=== PATIENT | female | born 1965 | race Caucasian/White ===

== ENCOUNTER 2017-05-31 08:19 | Day surgery (SDC) | payer MEDICAID, OTHER ==
[~2017-05-31] VITALS: Ht 165.1 cm; Wt 119.6 kg
[2017-05-31] VITALS (11 sets, daily range): BP systolic 112–140; BP diastolic 77–94; PULSE 85–102; RESP 15–41; Ht 165.1 cm; Wt 119.6 kg
[~2017-05-31 08:19] MED LIST: CEFAZOLIN 2 GM/50 ML (PMX) 50 ML IVPB SCH; SOD CHLORIDE 0.9% 1,000 ML IV SCH
[2017-05-31] MEDS ORDERED: BUPIVACAINE 0.25% (MPF) 30 ML INJ ONE (08:21)
[2017-05-31] MEDS ORDERED: BUPR-75 PO (09:12)
[2017-05-31] MEDS ORDERED: LORA1TAB PO (09:13)
[2017-05-31] MEDS ORDERED: TOPI-44 PO (09:13)
[2017-05-31] MEDS ORDERED: ZOLP5TAB PO (09:13)
[2017-05-31] MEDS ORDERED: QUET100T PO (09:14)
[2017-05-31] MEDS ORDERED: LIDOCAINE 2% (SDV) 5 ML INJ ONE (09:30)
[2017-05-31] MEDS ORDERED: PROPOFOL 40 ML ONE (09:30)
[2017-05-31] MEDS ORDERED: CEFAZOLIN 1 GM INJ ONE (09:30)
[2017-05-31] MEDS ORDERED: ONDANSETRON 4 MG INJ ONE (09:31)
[2017-05-31] MEDS ORDERED: DEXAMETHASONE 4 MG/ML 1 ML INJ ONE (09:31)
[2017-05-31] MEDS ORDERED: FENTAnyl 50 MCG/ML VIAL ONE (09:31)
[2017-05-31] MEDS ORDERED: GLYCOPYRROLATE 0.4 MG INJ ONE (09:33)
[2017-05-31] MEDS ORDERED: BUPIVACAINE 0.25% (MPF) 30 ML INJ INJ ONE (10:19)
--- NOTE | 2017-05-31 10:38 | SIPON ---
Date/Time of Note Date/Time of Note DATE: 05/31/17 TIME: 10:36 Operative Report Preoperative Diagnosis right shoulder and right arm masses Postoperative Diagnosis same Operation/Procedure Performed 1. excision of right shoulder mass 9 cm incision 8 cm mass 2. excision of right forearm mass 5 cm incision 4 cm mass 3. localized adjacent tissue transfer with the use of skin flaps 28 sq cm defect 4. therapeutic injection of subcutaneous marcaine Surgeon see signature line client account assistant none Anesthesia: general Estimated blood loss: 0 - 10 ml's Transfusion Required none Specimen right shoulder mass and right forearm mass Grafts/Implants none Complications none Fazal ANDERSEN May 31, 2017 10:38
[2017-05-31] MEDS ORDERED: OXYCODONE/ACETAMINOPHEN (5/325) TAB PO PRN ×2 (11:00)
[2017-05-31] MEDS ORDERED: METOCLOPRAMIDE 10 MG INJ IV PRN (11:00)
[2017-05-31] MEDS ORDERED: FENTAnyl 50 MCG/ML VIAL IV PRN ×3 (11:00)
[2017-05-31] MEDS ORDERED: ALBUTEROL 0.083% (NEB) 2.5 MG/3 ML AMP HHN PRN (11:00)
[2017-05-31] MEDS ORDERED: MEPERIDINE 25 MG INJ IV PRN (11:00)
[2017-05-31] MEDS ORDERED: DIPHENHYDRAMINE 50 MG INJ IV PRN (11:00)
[2017-05-31] MEDS ORDERED: ONDANSETRON 4 MG INJ IV PRN (11:00)
[2017-05-31] MEDS ORDERED: HYDROCODONE/APAP (5/325) TAB PO ONE (11:00)
--- NOTE | 2017-05-31 11:14 | OPR ---
DATE OF OPERATION: 05/31/2017 INDICATION: The patient is a 52-year-old female with a large right shoulder mass and a right forearm mass. She requests surgical excision. Risks, alternatives, benefits of procedure were discussed. The patient expressed understanding. Consents to the operation. PREOPERATIVE DIAGNOSIS: Right shoulder mass and right forearm mass. POSTOPERATIVE DIAGNOSIS: Right shoulder mass and right forearm mass. OPERATION: 1. Excision of right shoulder mass with 9 cm size incision and 8 cm size mass. 2. Excision of right forearm mass with 5 cm size incision and 4 cm size mass. 3. Localized adjacent tissue transfer with use of skin flaps with 28 cm2 defect. 4. Therapeutic subcutaneous Marcaine injection. SURGEON: Porsha Thrasher SPECIMENS: Right shoulder mass and right forearm mass. ESTIMATED BLOOD LOSS: 10 mL. COMPLICATIONS: None. ANESTHESIA: General. OPERATIVE PROCEDURE: The patient taken to the operating room, prepped and draped in the usual sterile fashion. Surgical time- out was performed. IV antibiotics were given. A transverse incision was made over the right posterior shoulder mass with a 10 blade. Dissection cautery was carried down to the mass and circumferentially excised. There was good hemostasis. Due to large tissue defect localized adjacent tissue transfer with use of skin flaps was performed. Multilayered closure with interrupted 3-0 Vicryl and skin arnulfo. Therapeutic subcutaneous Marcaine is injected throughout the incision site. Attention was then paid to the right forearm mass. Transverse incision was made with a 10 blade. Dissection cautery was carried down to the mass and circumferentially excised. Due to the large tissue defect, localized adjacent tissue transfer with use of skin flaps were performed. Multilayered closure with interrupted 3-0 Vicryl and skin arnulfo. Therapeutic subcutaneous Marcaine is injected throughout the incision sites. Dry dressings were applied to all incision sites. Dictated By: Porsha Thrasher /[email or web address]/[email or web address] /Document#: [id number]
== END 2017-05-31 12:20 | disposition home or self-care (01) ==
LOC: SDS 08:19
PROVIDERS: ATTEND Surgery
DX: D17.21 Benign lipomatous neoplasm of skin and subcutaneous tissue of right arm (principal); M19.90 Unspecified osteoarthritis, unspecified site; J45.909 Unspecified asthma, uncomplicated; J44.9 Chronic obstructive pulmonary disease, unspecified; E78.5 Hyperlipidemia, unspecified; E66.01 Morbid (severe) obesity due to excess calories; Z68.41 Body mass index [BMI] 40.0-44.9, adult; G47.00 Insomnia, unspecified; F31.9 Bipolar disorder, unspecified
CPT/HCPCS: 14021; 23071; 25071; 88307; J0690; J1100; J2405; J3010; Z7512; Z7610